=== PATIENT | female | born 1995 | race Caucasian/White ===

== ENCOUNTER 2017-03-27 20:26 | Emergency (ER) | payer OTHER ==
[2017-03-27 20:37] VITALS: BP 132/66; PULSE 100; TEMP 98.7; BMI 23.6
--- NOTE | 2017-03-27 22:28 | PDOC ---
History of Present Illness - General History Source: Patient Exam Limitations: No Limitations - History of Present Illness Initial Comments: 03/27/17 22:42 The patient is a 21 year old female, 19 weeks (), with a significant past medical history of asthma who presents to the ED with complaints of vaginal bleeding since earlier today. The patient reports light blood on tissue secondary to wiping after urinating. She reports subrapubic pain before urinating and states it feels weird when she pees. Patient notes she has not had sex in a few days. Patient had an anatomical US on 03/13 that showed a male fetus. Patient gave to her first child on November 2015. Denies dysuria. Denies nausea, vomiting, or diarrhea. Denies chest pain or shortness of breath. Denies fever or chills. Denies any other symptoms. Allergies: Penicillin GUEST EXPERIENCE REPRESENTATIVE: Rosie Jaquez <Marquis Reynoso - Last Filed: 03/27/17 23:36> <Molly Hills - Last Filed: 03/27/17 23:50> - General Chief Complaint: Vaginal Bleeding Stated Complaint: 19 WEEKS BLEEDING Time Seen by Provider: 03/27/17 22:16 Past History <Marquis Reynoso - Last Filed: 03/27/17 23:36> - Past Medical History Asthma: Yes (LAST ATTACK FALL 2014) Cancer: No Cardiac Disorders: No Diabetes: No HTN: No Seizures: No Thyroid Disease: No - Psycho/Social/Smoking Cessation Hx Suicidal Ideation: No Smoking History: Never smoked Hx Alcohol Use: No Drug/Substance Use Hx: No Hx Substance Use Treatment: No <Molly Hills - Last Filed: 03/27/17 23:50> - Past Medical History Allergies/Adverse Reactions: Allergies Allergy/AdvReac Type Severity Reaction Status Date / Time Penicillins Allergy Verified 03/27/17 20:37 Home Medications: Ambulatory Orders Albuterol Sulfate Inhaler - [Ventolin HFA Inhaler -] 1 inh PO PRN PRN 12/18/15 Fluticasone Propionate [Flovent Diskus] 2 inh PO DAILY 12/18/15 Valtrex - 1 tab PO DAILY 12/18/15 Acetaminophen [Tylenol .Regular Strength -] 650 mg PO Q3H PRN #0 tablet Benzocaine [Americaine 20% [place] -] 1 spray TP PRN PRN #0 bottle 12/19/15 Ferrous Sulfate [Feosol] 325 mg PO BID ud 12/19/15 Ibuprofen [Motrin -] 200 mg PO Q4H PRN #0 tablet 12/19/15 Vitamins (Sjr) - 1 tab PO DAILY tablet 12/19/15 Valacyclovir HCl [Valtrex -] 500 mg PO DAILY tablet 12/19/15 Witch Shaina 50% (Tucks) [Tucks Pads -] 1 pad TP PRN PRN #0 pad 12/19/15 Review of Systems - Review of Systems Able to Perform ROS?: Yes Comments:: 03/27/17 22:43 CONSTITUTIONAL: Absent: fever, chills, diaphoresis, generalized weakness, malaise, loss of appetite HEENT: Absent: rhinorrhea, nasal congestion, throat pain, throat swelling, difficulty swallowing, mouth swelling, ear pain, eye pain, visual Changes CARDIOVASCULAR: Absent: chest pain, syncope, palpitations, irregular heart rate, lightheadedness , peripheral edema RESPIRATORY: Absent: cough, shortness of breath, dyspnea with exertion, orthopnea, wheezing, stridor, hemoptysis GASTROINTESTINAL: Absent: abdominal pain, abdominal distension, nausea, vomiting, diarrhea, constipation, melena, hematochezia GENITOURINARY: + vaginal bleeding, subrpubic pain Absent: dysuria, frequency, urgency, hesitancy, flank pain, genital pain MUSCULOSKELETAL: Absent: myalgia, arthralgia, joint swelling SKIN: Absent: rash, itching, pallor HEMATOLOGIC/IMMUNOLOGIC: Absent: easy bleeding, easy bruising, lymphadenopathy, frequent infections ENDOCRINE: Absent: unexplained weight gain, unexplained weight loss, heat intolerance, cold intolerance NEUROLOGIC: Absent: headache, focal weakness or paresthesias, dizziness, unsteady gait, seizure, mental status changes, bladder or bowel incontinence PSYCHIATRIC: Absent: anxiety, depression, suicidal or homicidal ideation, hallucinations. <Marquis Reynoso - Last Filed: 03/27/17 23:36> *Physical Exam - Vital Signs Last Vital Signs Temp Pulse Resp BP Pulse Ox 98.7 F 100 H 18 132/66 99 03/27/17 20:34 03/27/17 20:34 03/27/17 20:34 03/27/17 20:34 03/27/17 20:34 - Physical Exam Comments: 03/27/17 23:36 GENERAL: Well-appearing, well-nourished. No apparent distress. HEENT: Normocephalic, atraumatic. PERRL, EOM intact. CARDIOVASCULAR: Normal S1, S2. Regular rate and rhythm. PULMONARY: Clear to auscultation bilaterally. ABDOMEN: + gravid abdomen Soft, non-distended, non-tender. EXTREMITIES: Normal ROM in all four extremities. No gross deformities. SKIN: Warm, dry. No rash NEUROLOGICAL: No focal neurological deficits. <Marquis Reynoso - Last Filed: 03/27/17 23:36> - Vital Signs Last Vital Signs Temp Pulse Resp BP Pulse Ox 98.7 F 100 H 18 132/66 99 03/27/17 20:34 03/27/17 20:34 03/27/17 20:34 03/27/17 20:34 03/27/17 20:34 <Molly Hills - Last Filed: 03/27/17 23:50> Medical Decision Making - Medical Decision Making 03/27/17 23:47 29-year-old female was last menstrual cycle was November 11. Presents because she saw some blood when she wiped herself with toilet paper. She states she was 19 weeks 3, para 1 Ultrasound shows single live intrauterine 19 weeks 5 days,closed cervix,FHT 139 bpm plan followup with geomagnetician <Molly Hills - Last Filed: 03/27/17 23:50> *DC/Admit/Observation/Transfer - Attestations Scribe Attestion: 03/27/17 22:43 Documentation prepared by Marquis Reynoso, acting as medical staffing coordinator for Molly Hills MD <Marquis Reynoso - Last Filed: 03/27/17 23:36> <Molly Hills - Last Filed: 03/27/17 23:50> Diagnosis at time of Disposition: Second trimester bleeding - Discharge Dispostion Disposition: HOME Condition at time of disposition: Stable - Referrals Referrals: Mercedes Khanna MD [Primary Care Provider] - - Patient Instructions Printed Discharge Instructions: DI for Vaginal Bleeding During Additional Instructions: please followup with your geomagnetician
== END 2017-03-28 01:15 | disposition home or self-care (01) ==
LOC: JER 20:26
DX: O26.892 Other specified pregnancy related conditions, second trimester (principal); O20.8 Other hemorrhage in early pregnancy; Z3A.19 19 weeks gestation of pregnancy
CPT/HCPCS: 76816-TC; 99281-25

== ENCOUNTER 2017-04-04 19:31 | Emergency (ER) | payer OTHER ==
[2017-04-04 19:41] VITALS: PULSE 79; BMI 23.6
[2017-04-04 20:59] LABS: URINE APPEARANCE SLCLOUDY; URINE BILIRUBIN NEGATIVE (NEGATIVE); URINE BLOOD 2+ (NEGATIVE); URINE COLOR AMBER; URINE GLUCOSE (UA) NEGATIVE (NEGATIVE); URINE KETONE TRACE (NEGATIVE); URINE NITRITE NEGATIVE (NEGATIVE); URINE PROTEIN NEGATIVE (NEGATIVE); URINE UROBILINOGEN NEGATIVE mg/dL (0.2-1.0)
[2017-04-04 21:07] LABS: URINE LEUK ESTERASE 2+ (NEGATIVE)
[2017-04-04 21:07] LABS: BASOPHIL 0.4 % (0-2.0); EOSINOPHIL 1.6 % (0-4.5); MCH 28.8 pg (25.7-33.7); MCHC 33.5 g/dl (32.0-36.0); MEAN CELL VOLUME 86.1 fl (80-96); MEAN PLT VOLUME 8.2 fl (7.5-11.1); NEUTROPHILS 77.8 % (42.8-82.8); PLATELET COUNT 211 K/MM3 (134-434); WHITE BLOOD COUNT 10.4 K/mm3 (4.0-10.0)
[2017-04-04 21:09] LABS: URINE RBC 2 /hpf (0-3); URINE WBC 17 /hpf (3-5)
[2017-04-04 21:10] LABS: URINE BACTERIA RARE /hpf (NONE SEEN); URINE MUCUS MANY
--- NOTE | 2017-04-04 23:01 | PDOC ---
History of Present Illness - General Chief Complaint: Vaginal Bleeding Stated Complaint: VAGINAL BLEEDING/20 WKS Time Seen by Provider: 04/04/17 20:42 - History of Present Illness Initial Comments: 04/04/17 23:00 CHIEF COMPLAINT: vag bldg in preg HISTORY OF PRESENT ILLNESS: 21 yo F with hx of asthma presents to ED with vaginal bleeding and RLQ cramping. Patient reports that she has had some vaginal spotting for the last week "at first it was only when I peed, but today I passed a clot." She reports having RLQ cramping today "like a sharp pain." She also complains of "feeling like I have a cold, my daughter has been sick too." She denies any nausea, vomiting, fever, chills, diarrhea. No recent travel or sick contacts. PAST MEDICAL HISTORY: Denies past medical history FAMILY HISTORY: Denies SOCIAL HISTORY: Denies tobacco, alcohol, illicit drug use. SURGICAL HISTORY: Denies ALLERGIES: PCN REVIEW OF SYSTEMS General/Constitutional: Denies fever or chills. Denies weakness, weight change. HEENT: Denies change in vision. Denies ear pain or discharge. Denies sore throat. Cardiovascular: Denies chest pain or shortness of breath. Respiratory: Denies cough, wheezing, or hemoptysis. Gastrointestinal: Denies nausea, vomiting, diarrhea or constipation. Genitourinary: Vag bleeding x 1 week, passed a clot today. R lower quadrant discomfort. Denies dysuria, frequency, or change in urination. Musculoskeletal: Denies joint or muscle swelling or pain. Denies neck or back pain. Skin and breasts: Denies rash or easy bruising. PHYSICAL EXAM General Appearance: Well-appearing, appropriately dressed. No apparent distress. HEENT: Nasal congestion, rhinorreah. EOMI, PERRLA, normal voice, TMs normal, pharynx normal. No conjunctival pallor. No photophobia, scleral icterus. Neck: Supple. Trachea midline. No tenderness, rigidity, carotid bruit, stridor , lymphadenopathy, or thyromegaly. Respiratory/Chest: Lungs CTAB. Cardiovascular: RRR. S1, S2. Gastrointestinal/Abdominal: Normal bowel sounds. Abdomen soft, non-distended. No tenderness or rebound tenderness. No organomegaly, pulsatile mass, guarding , hernia, hepatomegaly, splenomegaly. Musculoskeletal/Extremities: Normal inspection. FROM of all extremities, normal capillary refill. Pelvis Stable. No CVA tenderness. No tenderness to extremities, pedal edema, swelling, erythema or deformity. Integumentary: Appropriate color, dry, warm. No cyanosis, erythema, jaundice or rash Neurologic: toe puller II-XII intact. Fully oriented, alert. Appropriate mood/affect. Motor strength 5/5. No appreciable EOM palsy, facial droop or sensory deficit. 04/04/17 23:06 Past History - Past Medical History Allergies/Adverse Reactions: Allergies Allergy/AdvReac Type Severity Reaction Status Date / Time Penicillins Allergy Verified 04/04/17 19:38 Home Medications: Ambulatory Orders Albuterol Sulfate Inhaler - [Ventolin HFA Inhaler -] 1 inh PO PRN PRN 12/18/15 Acetaminophen [Tylenol .Regular Strength -] 650 mg PO Q3H PRN #0 tablet Ferrous Sulfate [Feosol] 325 mg PO BID ud 12/19/15 Vitamins (Sjr) - 1 tab PO DAILY tablet 12/19/15 Nitrofurantoin Monohyd/M-Cryst [Macrobid -] 100 mg PO BID #14 capsule 04/07/17 Asthma: Yes (LAST ATTACK FALL 2014) Cancer: No Cardiac Disorders: No Diabetes: No HTN: No Seizures: No Thyroid Disease: No - Psycho/Social/Smoking Cessation Hx Suicidal Ideation: No Smoking History: Never smoked Information on smoking cessation initiated: No Hx Alcohol Use: No Drug/Substance Use Hx: No Substance Use Type: None Hx Substance Use Treatment: No *Physical Exam - Vital Signs Last Vital Signs Temp Pulse Resp BP Pulse Ox 97.8 F 79 20 115/62 99 04/04/17 19:39 04/04/17 19:39 04/04/17 19:39 04/04/17 19:39 04/04/17 19:39 ED Treatment Course - LABORATORY CBC & Chemistry Diagram: 04/04/17 21:00 - ADDITIONAL ORDERS Additional order review: Laboratory Results 04/04/17 04/04/17 04/04/17 22:30 21:00 20:50 Beta HCG, Quant 4619.5 Urine Color Kathy Urine Appearance Slcloudy Urine pH 5.0 Urine Protein Negative Urine Glucose (UA) Negative Urine Ketones Trace H Urine Blood 2+ H Urine Nitrite Negative Urine Bilirubin Negative Urine Urobilinogen Negative Ur Leukocyte Esterase 2+ H Urine RBC 2 Urine WBC 17 Ur Epithelial Cells Rare Urine Crystals Rare Urine Bacteria Rare Urine Mucus Many Blood Type A POSITIVE Antibody Screen Negative 04/04/17 21:00 RBC 4.51 MCV 86.1 MCHC 33.5 RDW 15.0 MPV 8.2 D Neutrophils % 77.8 Lymphocytes % 14.5 Monocytes % 5.7 Eosinophils % 1.6 D Basophils % 0.4 - RADIOLOGY Radiology Studies Ordered: Category Date Time Status US(SINGLE) [US] Stat Ultrasound 04/04/17 21:19 Completed Medical Decision Making - Medical Decision Making 04/04/17 23:08 21 yo F with hx of asthma presents to ED with vaginal bleeding and RLQ cramping. -CBC, CMP, PT/INR, T&S -TVUS 04/04/17 23:12 TVUS confirms IUP approximately 20 weeks and 4 days gestational age. Patient > 20 wks preg, will transfer to L&D for further evaluation. *DC/Admit/Observation/Transfer Diagnosis at time of Disposition: Abdominal pain in - Discharge Dispostion Disposition: HOME Condition at time of disposition: Stable - Prescriptions Prescriptions: Nitrofurantoin Monohyd/M-Cryst [Macrobid -] 100 mg PO BID #14 capsule - Referrals Referrals: [facility] [Provider Group] Mercedes Khanna MD [Primary Care Provider] - - Patient Instructions Additional Instructions: DISCHARGE TO HOME MAINTAIN BEDREST UNTIL SEEN BY MD CALL CLINIC FOR APPOINTMENT IN AM FOR FOLLOW UP DRINK PLENTY OF FLUIDS DIET TOLERATED AVOID SEXUAL INTERCOURSE UNTIL SEEN BY MD CONTINUE ALL HOME MEDICATIONS DIRECTED RETURN TO HOSPITAL; CONTRACTIONS EVERY 3 TO 5 MINUTES DECREASED MOVEMENT HEAVY VAGINAL BLEEDING RUPTURE OF MEMBRANES OR "WATER BREAKS"
[2017-04-05 00:33] VITALS: BP 107/56; TEMP 98.2
--- NOTE | 2017-04-07 08:31 | PDOC ---
Patient Follow-up (Call Back) - Post ED Follow - Up Condition at time of discharge: Stable Disposition at time of original discharge: HOME Reason for Call Back: Abnwl. Microbiology (Left voicemail for patient to call me back; needs abx for UTI - 20 weeks )
== END 2017-04-05 00:20 | disposition home or self-care (01) ==
LOC: JER 19:31
DX: O46.92 Antepartum hemorrhage, unspecified, second trimester (principal); Z3A.20 20 weeks gestation of pregnancy; J45.909 Unspecified asthma, uncomplicated; Z88.0 Allergy status to penicillin
CPT/HCPCS: 36415; 76801-TC; 81003; 81015; 84702; 85025; 86850; 86900; 86901; 87077; 87086; 87186; 99281-25